=== PATIENT | male | born 1995 | race Caucasian/White ===

== ENCOUNTER 2020-04-05 12:39 | Emergency (ER) | payer BC ==
[~2020-04-05] VITALS: Ht 175.3 cm; Wt 113.4 kg
[2020-04-05] MEDS ORDERED: SODIUM CHLORIDE 0.9% 1000ML 1,000 ML IV STA (13:04)
[2020-04-05] MEDS ORDERED: KETOROLAC TROMETHAMINE 30 MG/ML VIAL IV STA (13:04)
[2020-04-05] MEDS ORDERED: DIPHENHYDRAMINE HCL INJ 50 MG/ML VIAL IV ONE (13:15)
[2020-04-05] MEDS ORDERED: METOCLOPRAMIDE HCL 10 MG/2ML VIAL IV ONE (13:15)
--- NOTE | 2020-04-05 14:21 | Emergency Department Note ---
History of Present Illnes History of Present Illness Chief Complaint: General Medicine Complaints History of Present Illness This is a 25 year old male PATIENT IN FROM HOME WITH COMPLAINTS OF HEADACHE AND VOMITING X 6 HOURS. STATES THAT HE HAS HAD MIGRAINES BEFORE; C/O PAIN, SENSITIVITY TO LIGHT, NAUSEA, AND VOMITING. Historian: Patient Arrival Mode: Car Laboratory Monitor Required: No Onset (how long ago): hour(s) (6) Location: RIGHT TEMPORAL Quality: PAIN Radiation: Reports non-radiation Severity: severe Duration (how long): hour(s) Timing of current episode: constant Progression: unchanged Chronicity: recurrent Context: Denies recent illness Relieving factors: other (DARK, QUIET ROOM) Exacerbating factors: other (LIGHT, LOUD NOISES) Associated symptoms: Reports nausea/vomiting Treatments prior to arrival: none Past Medical/Family History Physician Review I have reviewed the patient's past medical and family history. Any updates have been documented here. Past Medical History Recent Fever: No Clinical Suspicion of Infectio: No New/Unexplained Change in Ment: No Past Medical History: Migraines Past Surgical History: None Family History Family history of heart diseas: No Other Last Tetanus: UTD Review of Systems Review of Systems Constitutional: Reports as per HPI EENTM: Reports no symptoms Cardiovascular: Reports no symptoms Respiratory: Reports no symptoms Gastrointestinal: Reports nausea, Reports vomiting Genitourinary: Reports no symptoms Musculoskeletal: Reports no symptoms Integumentary: Reports no symptoms Neurological: Reports headache Psychological: Reports no symptoms Endocrine: Reports no symptoms Hematological/Lymphatic: Reports no symptoms Physical Exam Related Data Allergies: Coded Allergies: No Known Allergies (Unverified , 04/05/20) Triage Vital Signs Vital Signs Date Time Temp Pulse Resp B/P (MAP) Pulse Ox O2 Delivery O2 Flow Rate FiO2 04/05/20 12:59 98.5 91 18 132/92 97 Vital signs reviewed: Yes Physical Exam CONSTITUTIONAL Constitutional: Present well-developed, Present well-nourished HENT HENT: Present normocephalic, Present atraumatic, Present oropharynx clear/moist, Present nose normal HENT L/R: Present left ext ear normal, Present right ext ear normal, Present other (NO TENDERNESS OVER TEMP ARTERIES) EYES Eyes: Reports PERRL, Reports conjunctivae normal, Reports EOM normal, Reports other (NORMAL FUNDI, NO PAPILLEDEMA) NECK Neck: Present ROM normal PULMONARY Pulmonary: Present effort normal, Present breath sounds normal CARDIOVASCULAR Cardiovascular: Present regular rhythm, Present heart sounds normal, Present capillary refill normal, Present normal rate GASTROINTESTINAL Abdominal: Present soft, Present nontender, Present bowel sounds normal GENITOURINARY Genitourinary: Present exam deferred SKIN Skin: Present warm, Present dry MUSCULOSKELETAL Musculoskeletal: Present ROM normal NEUROLOGICAL Neurological: Present alert, Present oriented x 3, Present DTRs normal, Present no gross motor or sensory deficits; Absent cranial nerve deficit, Absent abnormal gait PSYCHOLOGICAL Psychological: Present mood/affect normal, Present judgement normal Assessment & Plan Medical Decision Making MDM GIVE IV FLUIDS, TORADOL, REGLAN, BENADRYL Reassessment Reassessment DC HOME, FIORICET Assessment & Plan Final Impression: (1) Migraine Depart Disposition: HOME, SELF-CARE Last Vital Signs Date Time Temp Pulse Resp B/P (MAP) Pulse Ox O2 Delivery O2 Flow Rate FiO2 04/05/20 12:59 98.5 91 18 132/92 97 Medications in the ED Ketorolac Tromethamine 30 mg ONCE STAT IV Last administered on 04/05/20at 13:35; Admin Dose 30 MG; Start 04/05/20 at 13:04; Stop 04/05/20 at 13:25; Status DC Sodium Chloride 1,000 ml @ 0 mls/hr Q0M STAT IV Last administered on 04/05/20at 13:35; Admin Dose 1,000 MLS/HR; Start 04/05/20 at 13:04; Stop 04/05/20 at 13:06; Status DC Metoclopramide HCl 10 mg ONCE ONCE IV Last administered on 04/05/20at 13:35; Admin Dose 10 MG; Start 04/05/20 at 13:15; Stop 04/05/20 at 13:25; Status DC Diphenhydramine HCl 25 mg NOW ONCE IV Last administered on 04/05/20at 13:35; Admin Dose 25 MG; Start 04/05/20 at 13:15; Stop 04/05/20 at 13:25; Status DC AURA CESPEDES MD Apr 05, 2020 14:21
== END 2020-04-05 14:45 | disposition home or self-care (01) ==
LOC: ER 13:53
DX: G43.909 Migraine, unspecified, not intractable, without status migrainosus (principal)
CPT/HCPCS: 99283; J1200; J1885; J2765; J7030

== ENCOUNTER 2020-05-09 17:58 | Emergency (ER) | payer BC ==
[~2020-05-09] VITALS: Ht 175.3 cm; Wt 113.4 kg
--- OUTSIDE RECORDS SUMMARY | 2020-05-09 18:24 | XMS REPORT | Continuity of Care Document ---
Author Author [facility] Organization [facility] Address [address] [place] [address] Phone Unavailable Care Team Providers Care Card Filer Name Role Phone NO, PCP PCP Unavailable Payers Payer Name Policy Type Policy Number Effective Date Expiration Date S shaun[place] [employer] P[employer] [id number] I [facility] Problems Condition Name Condition Details Condition Category Status Onset Date Resolution Date Last Treatment Date Treating Clinician Comments Source Migraine headache Problem Active [facility] Allergies, Adverse Reactions, Alerts This patient has no known allergies or adverse reactions. Social History Social Habit Start Date Stop Date Quantity Comments Source Sex Assigned At 1995 00:00:00 1995 00:00:00 Male [facility] Medications This patient has no known medications. Vital Signs Vital Name Observation Time Observation Value Comments Source Weight 2020-04-05 12:59:00 250 [lb_av] [facility] BMI (Body Mass Index) 2020-04-05 12:59:00 36.9 kg/m2 [facility] Procedures This patient has no known procedures. Plan of Care Planned Activity Planned Date Details Comments Source Instructions Headache - Migraine (Adult) [facility] Encounters Start Date/Time End Date/Time Encounter Type Admission Type Attendi [facility] Care Department Encounter ID Source 2020-04-05 13:53:00 2020-04-05 14:45:00 Departed Emergency Room [facility] [id number] [facility] Results This patient has no known results.
--- NOTE | 2020-05-09 19:36 | Diagnostic Imaging Report ---
X-ray left knee 3 views HISTORY: Pain. COMPARISON: None available. FINDINGS: Bones: No acute displaced fracture. Osseous alignment is within normal limits. Joints: The joint spaces are well-maintained. Soft tissues: The soft tissues appear unremarkable. IMPRESSION: No acute radiographic abnormality. Signed by: Charly Matta DO on 05/09/2020 7:33 PM
--- NOTE | 2020-05-09 19:42 | Emergency Department Note ---
History of Present Illnes History of Present Illness Chief Complaint: Extremity Trauma/Pain History of Present Illness This is a 25 year old male arrives to the ED was several year history of atraumatic left knee pain, patient states mother has arthritis and he is concerned of the same. Patient states he is able to ambulate with no difficulty but complains of intermittent left knee swelling. . Historian: Patient Arrival Mode: Car Onset (how long ago): year(s) Severity: mild Onset quality: gradual Duration (how long): month(s) Progression: unchanged Chronicity: new Context: Denies recent illness, Denies recent immobilization, Denies trauma/injury Relieving factors: none Past Medical/Family History Physician Review I have reviewed the patient's past medical and family history. Any updates have been documented here. Past Medical History Recent Fever: No Clinical Suspicion of Infectio: No New/Unexplained Change in Ment: No Past Medical History: Migraines Past Surgical History: None Social History Smoking Cessation: Never Smoker Counseling Performed: No Alcohol Use: None Any Illegal Drug Use: No Other Last Tetanus: UTD Any Pre-Existing Lines (PICC,: No Review of Systems Review of Systems Constitutional: Reports no symptoms EENTM: Reports no symptoms Cardiovascular: Reports no symptoms Respiratory: Reports no symptoms Gastrointestinal: Reports no symptoms Genitourinary: Reports no symptoms Musculoskeletal: Reports as per HPI, Reports joint pain Integumentary: Reports no symptoms Neurological: Reports no symptoms Psychological: Reports no symptoms Endocrine: Reports no symptoms Hematological/Lymphatic: Reports no symptoms Physical Exam Related Data Allergies: Coded Allergies: No Known Allergies (Unverified , 04/05/20) Triage Vital Signs Vital Signs Date Time Temp Pulse Resp B/P (MAP) Pulse Ox O2 Delivery O2 Flow Rate FiO2 05/09/20 18:03 98.4 87 17 153/99 100 Room Air Vital signs reviewed: Yes (knee with no palpable effusion, no crepitus, normal straight leg raise, normal range of motion, normal popliteal pulse, compartments are soft, no deformity noted, patellar tendon intact, no concerns of cellulitis/infection) Physical Exam CONSTITUTIONAL Constitutional: Present well-developed, Present well-nourished HENT HENT: Present normocephalic, Present atraumatic, Present oropharynx clear/moist, Present nose normal HENT L/R: Present left ext ear normal, Present right ext ear normal EYES Eyes: Reports PERRL, Reports conjunctivae normal NECK Neck: Present ROM normal PULMONARY Pulmonary: Present effort normal, Present breath sounds normal CARDIOVASCULAR Cardiovascular: Present regular rhythm, Present heart sounds normal, Present capillary refill normal, Present normal rate GASTROINTESTINAL Abdominal: Present soft, Present nontender, Present bowel sounds normal GENITOURINARY Genitourinary: Present exam deferred SKIN Skin: Present warm, Present dry MUSCULOSKELETAL Musculoskeletal: Present ROM normal NEUROLOGICAL Neurological: Present alert, Present oriented x 3, Present no gross motor or sensory deficits PSYCHOLOGICAL Psychological: Present mood/affect normal, Present judgement normal Results Imaging Imaging results reviewed: Yes Assessment & Plan Medical Decision Making MDM 25-year-old male arrives to the ED with atraumatic left knee pain, place or knee immobilizer and outpatient orthopedic referral given Assessment & Plan Final Impression: (1) Knee pain Depart Disposition: HOME, SELF-CARE Last Vital Signs Date Time Temp Pulse Resp B/P (MAP) Pulse Ox O2 Delivery O2 Flow Rate FiO2 05/09/20 18:03 98.4 87 17 153/99 100 Room Air SERGIO ALEXANDER DO May 09, 2020 19:41
[2020-05-09] MEDS ORDERED: ULTRAM50 MG PO (20:04)
[2020-05-09 20:07] VITALS: BP 126/64
== END 2020-05-09 20:11 | disposition home or self-care (01) ==
LOC: ER 18:19
DX: M25.562 Pain in left knee (principal)
CPT/HCPCS: 99283

== ENCOUNTER 2021-06-24 20:08 | Emergency (ER) | payer BC ==
[~2021-06-24] VITALS: Ht 175.3 cm; Wt 113.4 kg
[~2021-06-24 20:08] MED LIST: ULTRAM50 MG PO
[2021-06-24 21:00] LABS: BASOPHILS # (AUTO) 0.1 (0.0-0.1); BASOPHILS % 0.5 % (0.0-1.0); EOSINOPHILS % 0.3 % (0.0-6.0); HEMATOCRIT 45.5 % (38.2-49.6); LYMPHOCYTES # (AUTO) 2.5 (1.0-3.2); LYMPHOCYTES % 26.4 % (18.0-39.1); MEAN CORPUSCULAR HEMOGLOBIN 28.8 pg (28-32); MEAN CORPUSCULAR VOLUME 87.5 fL (81-99); MONOCYTES # (AUTO) 0.3 (0.2-0.8); MONOCYTES % 3.6 % (4.4-11.3); NEUTROPHILS # (AUTO) 6.4 (2.1-6.9); PLATELET COUNT 294 x10e3/uL (140-360); RED CELL DISTRIBUTION WIDTH 12.5 % (11.7-14.4)
[2021-06-24] MEDS ORDERED: SODIUM CHLORIDE 0.9% 1000ML 1,000 ML IV SCH (21:00)
[2021-06-24] MEDS ORDERED: ONDANSETRON HCL INJ 2MG/ML 2ML 2 MG/ML VIAL IV STA (21:00)
[2021-06-24 21:14] LABS: AMYLASE 59 U/L (25-125); LIPASE 19 U/L (8-78)
[2021-06-24 21:16] LABS: ALBUMIN 4.3 g/dL (3.5-5.0); ALBUMIN/GLOBULIN RATIO 1.1 (0.8-2.0); ANION GAP 17.7 mmol/L (8-16); CALCIUM 9.8 mg/dL (8.4-10.2); CREATININE, SERUM 1.17 mg/dL (0.72-1.25); POTASSIUM 3.7 mmol/L (3.5-5.1)
[2021-06-24 22:29] VITALS: BP 107/73
[2021-06-24 22:30] LABS: CLARITY,URINE CLOUDY (CLEAR); COLOR,URINE YELLOW (YELLOW); LEUKOCYTE ESTERASE ,URINE NEGATIVE (NEGATIVE); NITRITE,URINE NEGATIVE (NEGATIVE); PROTEIN,URINE DIPSTICK 1+ (NEGATIVE)
[2021-06-24 22:31] LABS: KETONES,URINE NEGATIVE (NEGATIVE); URINE UROBILINOGEN 0.2 mg/dL (0.2 - 1)
[2021-06-24 22:44] LABS: RBC,URINE 0-5 /HPF (0-5)
[2021-06-24 22:45] LABS: AMORPHOUS SEDIMENT,URINE MANY (FEW); BACTERIA,URINE MANY /HPF; EPITHELIAL CELLS,URINE FEW /LPF
== END 2021-06-24 22:33 | disposition home or self-care (01) ==
LOC: ER 20:38
DX: R11.2 Nausea with vomiting, unspecified (principal); R10.13 Epigastric pain; A05.9 Bacterial foodborne intoxication, unspecified
CPT/HCPCS: 36415; 80053; 81001; 82150; 83690; 85025; 99283; C9113; J2405; J7030

== ENCOUNTER 2022-03-07 06:49 | Emergency (ER) | payer BC, OTHER ==
[~2022-03-07] VITALS: Ht 172.7 cm; Wt 113.4 kg
[2022-03-07] MEDS ORDERED: TOBREX5 ML OP (08:22)
== END 2022-03-07 08:15 | disposition home or self-care (01) ==
LOC: FSED 06:57
DX: H10.9 Unspecified conjunctivitis (principal)
CPT/HCPCS: 99282